=== PATIENT | male | born 1970 | race Hispanic/Latino ===

== ENCOUNTER 2022-05-10 18:48 | Emergency (ER) | payer OTHER ==
[~2022-05-10] VITALS: Ht 172.7 cm; Wt 154.2 kg
[2022-05-10 20:12] VITALS: BP 162/90
[2022-05-10] MEDS ORDERED: GABA600T10 PO (20:20)
[2022-05-10] MEDS ORDERED: TRAM50TA4 PO (20:20)
== END 2022-05-10 20:46 | disposition home or self-care (01) ==
LOC: EDH 18:48
DX: G89.29 Other chronic pain (principal); M25.572 Pain in left ankle and joints of left foot; I10 Essential (primary) hypertension; Z88.2 Allergy status to sulfonamides